=== PATIENT | female | born 1975 | race Caucasian/White ===

== ENCOUNTER 2024-05-24 06:11 | Outpatient (CLI) | payer OTHER ==
[2024-05-24] MEDS ORDERED: GADOTERATE MEGLUMINE 7.5 MMOL/15 ML VIAL IV ONE (06:40)
[2024-05-24] MEDS ORDERED: LIDOcaine 1% 30ml preserv. free vial ONE (06:40)
[2024-05-24] MEDS ORDERED: LIDOcaine 1%/PF 5ML 10 MG/ML VIAL ONE (06:40)
[2024-05-24] MEDS ORDERED: iohexol 300 MG/1 ML 50ml polymer ONE (06:40)
== END 2024-05-24 23:59 | disposition home or self-care (01) ==
LOC: RAD 06:11
PROVIDERS: ATTEND Family Medicine Sports Medicine
DX: M25.551 Pain in right hip (principal); M47.816 Spondylosis without myelopathy or radiculopathy, lumbar region; S73.191A Other sprain of right hip, initial encounter; X58.XXXA Exposure to other specified factors, initial encounter; Y93.89 Activity, other specified; Y92.89 Other specified places as the place of occurrence of the external cause; Y99.8 Other external cause status
CPT/HCPCS: 27093; 73722; 77002; A9575; J2003; J3490; Q9967

== ENCOUNTER 2024-12-16 06:04 | Outpatient (CLI) | payer OTHER ==
[2024-12-16] MEDS ORDERED: GADOTERATE MEGLUMINE 7.5 MMOL/15 ML VIAL IV ONE (06:41)
[2024-12-16] MEDS ORDERED: iohexol 300 MG/1 ML 50ml polymer ONE (06:41)
[2024-12-16] MEDS ORDERED: LIDOcaine 1% 30ml preserv. free vial ONE (06:41)
[2024-12-16] MEDS ORDERED: LIDOcaine 1%/PF 5ML 10 MG/ML VIAL ONE (06:41)
--- NOTE | 2024-12-16 08:55 | RADIOLOGY REPORT ---
CLINICAL INFORMATION: 48 years old, Female; PAIN IN RIGHT HIP. TECHNIQUE: Multisequence multiplanar MR arthrogram images of the right hip were obtained after the uneventful intra-articular administration of a dilute gadolinium contrast mixture under fluoroscopic guidance. Refer to the separately dictated arthrogram injection report for details concerning the arthrogram injection. COMPARISON: Prior MR arthrogram dated 05/24/2024. FINDINGS: BONES: No acute fracture or osteonecrosis. JOINT: Mild joint space narrowing of the right hip. There is likely fraying of the posterior labrum. Linear signal abnormality of the posterior labrum may be due to fraying with no contrast extending into the labral substance in this location to confirmed tear. This appears to be new compared to the prior MR arthrogram. No other evidence for labral tear. BURSAE: Minimal bilateral nonspecific peritrochanteric edema without significant fluid. TENDONS: Mild tendinosis of the distal gluteus medius and minimus tendons. Origins of the rectus femoris tendon and hamstring tendons are intact. Distal insertion of the iliopsoas tendon is intact. MUSCLES: Normal muscle bulk. No significant atrophy. No evidence of muscle strain or tear. OTHER: Adequate distention of the joint with contrast. No loose bodies or significant synovitis. IMPRESSION: 1. Linear signal abnormality at the posterior labrum, may be due to fraying with no contrast extending into the labral substance in this location to confirm tear. This appears to be a new finding compared to the prior MR arthrogram. Correlate with clinical findings. 2. Mild arthritic changes in the right hip.
--- NOTE | 2024-12-16 10:14 | RADIOLOGY REPORT ---
ANGIO ARTHROGRAM (A), ANGIO ARTHROGRAM (A) Date: 12/16/2024 07:20 AM Clinical History: PAIN IN RIGHT HIP Comparison: ANGIO ARTHROGRAM (A) on DOS: 05/24/24 Procedure: Verbal and written informed consent were obtained from the patient for the procedure of RIGHT HIP JOINT fluoroscopically guided arthrogram, after the procedure, risks, and benefits of the procedure were explained to the patient. Risks include bleeding, infection, reaction to injected medications, and damage to surrounding anatomic structures. The patient's questions were answered. The patient's most recent medical history was reviewed. A time out was performed to verify the patient's name, date of , and correct location of the procedure, prior to initiation of the procedure. The patient was placed supine on the fluoroscopic table and the area overlying the RIGHT HIP JOINT was prepped and draped in the usual sterile fashion. lications. Home-care instructions were reviewed with the patient prior to the patient's discharge from the fluoroscopy suite. The patient verbally affirmed understanding of these instructions. Impression: Technically successful fluoroscopically guided right hip joint arthrogram. The patient was transported to MRI for further imaging at the completion of the procedure.
== END 2024-12-16 23:59 | disposition home or self-care (01) ==
LOC: RAD 06:04
PROVIDERS: ATTEND Family Medicine Sports Medicine
DX: M16.11 Unilateral primary osteoarthritis, right hip (principal); M25.551 Pain in right hip; M76.01 Gluteal tendinitis, right hip
CPT/HCPCS: 27093; 73722; 77002; A9575; J2003; J3490; Q9967